=== PATIENT | male | born 1995 | race African-American/Black ===

== ENCOUNTER 2017-12-06 16:32 | Emergency (ER) | payer OTHER, MEDICAID ==
--- NOTE | 2017-12-06 16:43 | EDPHY ---
H & P Stated Complaint: blurry vision - Personal History Current Tetanus/Diphtheria Vaccine: Unsure Current Tetanus Diphtheria and Acellular Pertussis (TDAP): Unsure - Medical/Surgical History Hx Asthma: Yes Hx Chronic Respiratory Disease: No Hx Diabetes: No Hx Cardiac Disease: Yes Hx Renal Disease: No Hx Cirrhosis: No Hx Alcoholism: No Hx HIV/AIDS: No Hx Splenectomy or Spleen Trauma: No Other PMH: asthma, HTN, - Social History Smoking Status: Never smoked Time Seen by Provider: 12/06/17 16:33 HPI/ROS: CHIEF COMPLAINT: Head injury HISTORY OF PRESENT ILLNESS: 22-year-old male [place] [facility]. He is complaining of headache and blurry vision. 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 He remembers hitting his head waking up on the floor. He did not tells coworkers because extend the day. Today he took a bus from his home in [place] to meet a friend in [place] for lunch however he was complaining of non thunderclap nonprogressive headache can call 911. He also states that he is hungry, he is thirsty. He denies: Visual acuity changes, diplopia, midline C-spine pain, peripheral paresthesia, weakness, numbness, abdominal pain, chest pain, dyspnea, vomiting REVIEW OF SYSTEMS: 10 systems reviewed and negative with the exception of the elements mentioned in the history of present illness PAST MEDICAL & SURGICAL HISTORY: Low IQ. SOCIAL HISTORY: Denies alcohol or drug use . Lives in [place] PHYSICAL EXAM (Prior to examination, patient consented to physical exam, hands were washed and my usual and customary physical exam procedures followed) 1) GENERAL: Well-developed, well-nourished, alert and oriented. Appears to be in no acute distress. 2) HEAD: Normocephalic, tender to palpation vertex with no visible or palpable abnormality such as hematoma depression laceration. 3) HEENT: Pupils equal, round, reactive to light bilaterally. Sclera anicteric. No raccoon eyes no Kitchen sign. Nasopharynx, oropharynx, clear, no lesions. Dry mucous membranes. Poor dentition Ears bilaterally with normal tympanic membranes. No rhinorrhea. No otorrhea. No hemotympanum. 4) NECK: Full range of motion, no meningeal signs. No midline C-spine pain. Full pain-free range of motion which does not elicit midline pain or peripheral paresthesia, weakness, numbness. 5) LUNGS: Clear auscultation bilaterally, no wheezes, no rhonchi, no retractions. 6) HEART: Regular rate and rhythm, no murmur, no heave, no gallop. 7) ABDOMEN: No guarding, no rebound, no focal tenderness, negative McBurney's, negative Neville's, negative Rovsing's, negative peritoneal sign, 8) MUSCULOSKELETAL: Moving all extremities, no focal areas of tenderness, no obvious trauma. No peripheral edema or discoloration. 9) BACK: No CVA tenderness, no midline vertebral tenderness, no fluctuance, no step-off, no obvious trauma, no visual or palpable abnormality. 10) SKIN: No rash, no petechiae. 11) Psychiatric: Patient is oriented X 3, there is no agitation. 12) NEURO: Awake, alert, and oriented to person, place and time. Answers questions appropriately. There were no obvious focal neurologic abnormalities. No cerebellar dysfunction. Cranial nerves 2 through to 12 intact. Normal steady gait. Upper and lower extremities bilaterally with strength 5 / 5, reflexes 2+. DIFFERENTIAL DIAGNOSIS: Not necessarily in any particular order, my differential diagnosis includes, but is not limited to, concussion, skull fracture, intraparenchymal contusion, subarachnoid, subdural and epidural hematoma. The patient understands that this diagnosis is provisional and can never be 100% accurate. (Marge Patricio Sandra) Constitutional: Initial Vital Signs Temperature (C) 37.1 C 12/06/17 16:35 Heart Rate 97 12/06/17 16:35 Respiratory Rate 18 12/06/17 16:35 Blood Pressure 146/88 H 12/06/17 16:35 O2 Sat (%) 95 12/06/17 16:35 O2 Delivery Mode Room Air Allergies/Adverse Reactions: divalproex sodium [From Depakote] Allergy (Verified 01/04/13 21:35) melatonin Allergy (Verified 01/04/13 21:35) Home Medications: Medication Instructions Recorded NK [No Known Home Meds] 01/04/13 Medical Decision Making - Diagnostics Imaging Results: Images reviewed by myself (Marge Patricio) ED Course/Re-evaluation: 4:45 p.m.: I reviewed old medical records, most recent emergency department visit from [facility] where the patient was evaluated for right flank pain, had CT imaging showing no nephrolithiasis, normal urinalysis. 5:54 p.m. re-evaluation. He is resting comfortably, answering questions appropriately. Discussed with him his imaging results showing no posttraumatic sequelae on his CT scan. He remains with a nonfocal exam. He would like to be discharged. He feels comfortable being discharged. I provided my usual and customary head injury precautions instructions. I saw this patient independently based on established practice protocols. Care of patient under supervision of secondary supervising physician Dr Brandt . (Marge Patricio) Other Provider: The patient was evaluated and managed by the Physician Manager Office. My co- signature indicates that I have reviewed this chart and I agree with the findings and plan of care as documented. I am the secondary supervising physician. (Heike Brandt) - Data Points Laboratory Results: Laboratory Results 12/06/17 16:40 12/06/17 16:40 Medications Given: Discontinued Medications Sodium Chloride (Ns) 1,000 mls @ 0 mls/hr IV ONCE ONE PRN Reason: Wide Open Stop: 12/06/17 16:50 Last Admin: 12/06/17 17:10 Dose: 1,000 mls Departure - Departure Disposition: Home, Routine, Self-Care Clinical Impression: Head injury due to trauma Condition: Good Instructions: Head Injury (ED) Additional Instructions: ALTHOUGH THERE IS NO EVIDENCE OF SERIOUS HEAD INJURY AT THIS TIME, DELAYED SIGNS CAN APPEAR 24 TO 48 HOURS AFTER INJURY. PLEASE RETURN TO THE EMERGENCY DEPARTMENT (ED) IMMEDIATELY IF YOU HAVE INCREASED HEADACHE, PERSISTENT HEADACHE , VOMITING, WEAKNESS, CONFUSION OR VISUAL PROBLEMS. WE RECOMMEND THAT YOU DO NOT RESUME CONTACT SPORTS OR ACTIVITIES THAT TAKE COORDINATION OR BALANCE SUCH SKIING OR RIDING A BICYCLE UNTIL CLEARED TO DO SO BY YOUR DOCTOR OR BY A NEUROLOGIST. Referrals: Maame Cunningham MD [Medical Doctor] - As per Instructions
[2017-12-06] MEDS ORDERED: NS 1,000 ML IV ONE (16:49)
[2017-12-06 17:02] LABS: PLATELET COUNT 331 10^3/uL (150-400)
[2017-12-06 18:20] VITALS: BP 115/81
== END 2017-12-06 18:18 | disposition home or self-care (01) ==
LOC: EDUNIT#
DX: S09.8XXA Other specified injuries of head, initial encounter (principal); J45.909 Unspecified asthma, uncomplicated; I10 Essential (primary) hypertension; W22.8XXA Striking against or struck by other objects, initial encounter; Y99.0 Civilian activity done for income or pay